=== PATIENT | female | born 1955 | race Caucasian/White ===

== ENCOUNTER 2017-12-18 12:13 | Inpatient (IN) | payer OTHER ==
[~2017-12-18] VITALS: Ht 152.4 cm; Wt 90.7 kg
[~2017-12-18 12:13] MED LIST: NABUMETONE500 MG PO; PERCOCET 5/3251 TAB PO
[2018-01-14] MEDS ORDERED: VASOTEC10 MG PO (12:48)
== END 2018-01-23 13:46 | DRG 470 ==
LOC: SURH 01-21 10:21 → O/R 01-21 10:21 → SURG 01-21 12:00 → SURH 01-21 19:02
PROVIDERS: Orthopaedic Surgery
PROC: 0SRD0J9 Replacement of Left Knee Joint with Synthetic Substitute, Cemented, Open Approach (ICD-10-PCS; principal; 2018-01-21 13:30)
DX: M17.12 Unilateral primary osteoarthritis, left knee (principal); M85.462 Solitary bone cyst, left tibia and fibula; E66.01 Morbid (severe) obesity due to excess calories; I10 Essential (primary) hypertension; E66.8 Other obesity